=== PATIENT | female | born 1950 | race Caucasian/White ===

== ENCOUNTER 2016-09-06 08:31 | Outpatient (CLI) | payer OTHER, MEDICARE ==
[2016-09-06 09:13] LABS: ALT (SGPT) 19 U/L (0-55); AST (SGOT) 16 U/L (5-34); Albumin 4.2 g/dL (3.4-4.8); Alkaline Phosphatase 63 U/L (40-150); Anion Gap 13 mmol/L (10-20); BUN (Urea Nitrogen) 19 mg/dL (9.8-20.1); Bilirubin, Total 0.6 mg/dL (0.2-1.2); Calc. Creatinine Clearance 0 mL/min (70-130); Calcium 9.3 mg/dL (7.8-10.44); Carbon Dioxide 26 mmol/L (23-31); Chloride 108 mmol/L (98-107); Cholesterol 225 mg/dL (< 200 Desired); Estimated GFR-MDRD 73; Globulin 2.8 g/dL (2.4-3.5); Glucose 100 mg/dL (80-115); HDL Cholesterol 74 mg/dL (>60 Neg Risk); LDL Cholesterol, Calculated 128 mg/dL; Potassium 4.4 mmol/L (3.5-5.1); Sodium 143 mmol/L (136-145); Triglycerides 113 mg/dL (Less than 150)
[2016-09-06 09:35] LABS: Free T4 (Free Thyroxine) 1.28 ng/dL (0.70-1.48); Thyroid Stimulating Hormone 0.7384 uIU/mL (0.35-4.94); Vitamin D, 25 Hydroxy 57.3 ng/mL (> 30.0)
[2016-09-06 18:32] LABS: Free T3 2.34 pg/mL (1.71-3.71)
== END 2016-09-06 08:32 | disposition home or self-care (01) ==
LOC: BURLAB 08:31
PROVIDERS: ATTEND Internal Medicine Endocrinology, Diabetes & Metabolism
DX: E03.9 Hypothyroidism, unspecified (principal); E55.9 Vitamin D deficiency, unspecified; E78.00 Pure hypercholesterolemia, unspecified
CPT/HCPCS: 36415; 80053; 80061; 82306; 84439; 84443; 84481

== ENCOUNTER 2017-03-07 08:01 | Outpatient (CLI) | payer MEDICARE | END 2017-03-07 08:02 | disposition home or self-care (01) | LOC: BURLAB 08:01 | PROVIDERS: ATTEND Internal Medicine Endocrinology, Diabetes & Metabolism | DX: E78.00 Pure hypercholesterolemia, unspecified (principal); E03.9 Hypothyroidism, unspecified; E55.9 Vitamin D deficiency, unspecified ==

== ENCOUNTER 2020-04-17 16:06 | Emergency (ER) | payer MEDICARE ==
[2020-04-17] MEDS ORDERED: Ibuprofen 200 MG TAB ONE (16:35)
== END 2020-04-17 16:39 | disposition home or self-care (01) ==
LOC: BURERS 16:06
DX: M43.6 Torticollis (principal)
CPT/HCPCS: 99283

== ENCOUNTER 2023-06-03 07:21 | Emergency (ER) | payer MEDICARE ==
[2023-06-03 08:40] LABS: SARS-CoV-2 NAA Rapid Test Not Detected (NotDetected)
[2023-06-03] MEDS ORDERED: predniSONE 20 MG TAB ONE (08:56)
== END 2023-06-03 09:02 | disposition home or self-care (01) ==
LOC: BURERS 07:21
DX: J20.5 Acute bronchitis due to respiratory syncytial virus (principal); E03.9 Hypothyroidism, unspecified; K21.9 Gastro-esophageal reflux disease without esophagitis; Z79.899 Other long term (current) drug therapy; Z20.822 Contact with and (suspected) exposure to COVID-19
CPT/HCPCS: 0241U; 71046; 93005; J7512

== ENCOUNTER 2025-03-07 09:50 | Outpatient (CLI) | payer MEDICARE ==
[2025-03-07 17:09] LABS: Hep C IgG Ab NONREACTIVE S/CO (NonReactive); Hep C Index 0.09 S/CO (0-0.79)
== END 2025-03-07 09:51 | disposition home or self-care (01) ==
LOC: BURRAD 09:50
PROVIDERS: ATTEND Family Medicine
DX: Z11.59 Encounter for screening for other viral diseases (principal); R09.89 Other specified symptoms and signs involving the circulatory and respiratory systems
CPT/HCPCS: 36415; 71046; 86803